=== PATIENT | female | born 1930 | race Hispanic/Latino ===

== ENCOUNTER 2016-09-05 20:00 | Emergency (ER) | payer MEDICARE ==
[2016-09-05 20:40] VITALS: BP 150/79; PULSE 79; RESP 18; TEMP 97.7; O2SAT 99
--- NOTE | 2016-09-05 21:11 | ED PDOC ---
HPI: Head Injury Time Seen by Provider: 09/05/16 21:03 Chief Complaint (Nursing): Eye Problem Chief Complaint (Provider): head injury History Per: Patient History/Exam Limitations: no limitations Additional Complaint(s): 85yo f i ED with extensive cardiac hx and currently on blood thinner sustained facial injury after fall wile walking her dog-injury occurred 4 hrs ago-denies : LOC, headache vision changes numbness/tingling in UE/LE, CO, SOB, change in gait speech or mentation. Pt admit to increasing redness and swelling to left eye-with a "heavy sensation" but no FB sensation photophobia. Past Medical History Reviewed: Historical Data, Nursing Documentation, Vital Signs Vital Signs: Last Vital Signs Temp 97.7 F 09/05/16 20:34 Pulse 79 09/05/16 20:34 Resp 18 09/05/16 20:34 BP 150/79 09/05/16 20:34 Pulse Ox 99 09/05/16 20:34 - Medical History PMH: CAD, HTN, Seizures - Family History Family History: States: Unknown Family Hx - Allergies Allergies/Adverse Reactions: Allergies Allergy/AdvReac Type Severity Reaction Status Date / Time No Known Allergies Allergy Verified 05/02/16 16:53 Review of Systems ROS Statement: Except As Marked, All Systems Reviewed And Found Negative Constitutional: Negative for: Weakness, Malaise Eyes: Positive for: Pain Neurological: Negative for: Headache, Dizziness Physical Exam - Reviewed Nursing Documentation Reviewed: Yes Vital Signs Reviewed: Yes - Physical Exam Appears: Positive for: Non-toxic, No Acute Distress Head Exam: Positive for: ATRAUMATIC, NORMAL INSPECTION, NORMOCEPHALIC Skin: Positive for: Normal Color, Warm, DRY Eye Exam: Positive for: EOMI, PERRL, Other (slera with hemorraghing no hypehma ( -) floursince uptake (-) for consenual photophobia. non tender EOM, fundoscopic exam: no bleeding. ). Negative for: Nystagmus, Periorbital swelling, Periorbital tenderness Neck: Positive for: Normal, Painless ROM Cardiovascular/Chest: Positive for: Regular Rate, Rhythm Respiratory: Positive for: CNT, Normal Breath Sounds Gastrointestinal/Abdominal: Positive for: Normal Exam, Bowel Sounds, Soft. Negative for: Tenderness Neurologic/Psych: Positive for: Alert, machine i engraver II-XII (intact), Oriented, Cerebellar Tests (itnact), Gait (stable ). Negative for: Motor/Sensory Deficits , Facial Droop - ECG O2 Sat by Pulse Oximetry: 99 - Progress ED Course And Treament: pt will get CT of head. Medical Decision Making Medical Decision Making: Ct scan: FINDINGS: Brain: There is moderate prominence of ventricles and sulci, compatible with moderate atrophy. There is moderate diminished density of the white matter bilaterally, consistent with moderate microangiopathy. There is no evidence of intracranial hemorrhage. No evidence of acute territorial infarction. No edema. Ventricles: See above. Bones/joints: Unremarkable. No acute fracture. Soft tissues: Unremarkable. Sinuses: Unremarkable as visualized. No acute sinusitis. Mastoid air cells: Unremarkable as visualized. No mastoid effusion. IMPRESSION: 1. No evidence for acute intracranial abnormality or displaced calvarial fracture. 2. Additional incidental and/or chronic findings as described. Thank you for allowing us to participate in the care of your patient. Dictated and Authenticated by: Antolin Mckay MD 09/05/2016 10:11 PM Eastern Time ([place] & [place]) Pt dx: subcongitval hemorrhage-advised to se cool compress to eye and assured it will dissipate over time. pt advised to f/u with rn forensic. Disposition - Clinical Impression Clinical Impression: Head injury, Subconjunctival hematoma - Patient ED Disposition Is Patient to be Admitted: No Counseled Patient/Family Regarding: Studies Performed, Diagnosis, Need For Followup - Disposition Disposition: Routine/Home Disposition Time: 22:15 Condition: STABLE Instructions: Subconjunctival Hemorrhage (ED)
--- NOTE | 2016-09-05 22:11 | CT ---
EXAM: CT Head Without Intravenous Contrast CLINICAL HISTORY: 85 years old, female; Injury or trauma; Fall; Initial encounter; Concussion / head injury; Injury date: TECHNIQUE: Axial computed tomography images of the head/brain without intravenous contrast. This CT exam was performed using one or more of the following dose reduction techniques: automated exposure control, adjustment of the mA and/or kV according to patient size, and/or use of iterative reconstruction technique. Coronal and sagittal reformatted images were created and reviewed. COMPARISON: CT HEAD OR BRAIN W/O CONT 06/02/2012 5:29:04 PM FINDINGS: Brain: There is moderate prominence of ventricles and sulci, compatible with moderate atrophy. There is moderate diminished density of the white matter bilaterally, consistent with moderate microangiopathy. There is no evidence of intracranial hemorrhage. No evidence of acute territorial infarction. No edema. Ventricles: See above. Bones/joints: Unremarkable. No acute fracture. Soft tissues: Unremarkable. Sinuses: Unremarkable as visualized. No acute sinusitis. Mastoid air cells: Unremarkable as visualized. No mastoid effusion. IMPRESSION: 1. No evidence for acute intracranial abnormality or displaced calvarial fracture. 2. Additional incidental and/or chronic findings as described.
[2016-09-06] MEDS ORDERED: Lidocaine 1% Inj (20ml) ONE (08:58)
[2016-09-06] MEDS ORDERED: Povidone Iodine Topical 10% Sol ONE (09:04)
== END 2016-09-05 22:21 | disposition home or self-care (01) ==
LOC: H.ER 20:00
DX: S09.90XA Unspecified injury of head, initial encounter (principal)

== ENCOUNTER 2016-09-06 07:06 | Inpatient (IN) | payer MEDICARE, OTHER ==
[2016-09-06 07:09] VITALS: BMI 17.9
--- NOTE | 2016-09-06 07:23 | ED PDOC ---
HPI: Trauma/Fall - HPI Time Seen by Provider: 09/06/16 07:07 Chief Complaint (Nursing): Trauma History Per: Patient, Family History/Exam Limitations: no limitations Onset/Duration Of Symptoms: Hrs Associated Symptoms: Dizziness Additional Complaint(s): 85-year-old female, PMHx includes Hypertension, CAD (s/p 17 stents on Aspirin and Plavix), and Hypercholesterolemia, presents to the emergency department accompanied by daughter, with complaints of head injury. Patient states that she woke up and walked to the bathroom this morning, notes she became dizzy and "unsteady on feet" causing her to fall forward, and sustained an injury to her right forehead. Patients daughter notes that she helped patient up and began walking her out of the bathroom, when patient lost her balance again, and sustained a second injury to the forehead, resulting in her being brought to the ED for evaluation. Patient and daughter are unsure of any loss of consciousness. In ER, patient is complaining of left eye pain, mild nausea and pain to the forehead. Denies vomiting, numbness, weakness, back pain, neck pain , or any other associated symptoms. No other complaints at this time. Pt not up to date on Tetanus. Able to move eyes with no issues. PMD Dr Javid Epstein. Past Medical History Reviewed: Historical Data, Nursing Documentation, Vital Signs Vital Signs: Last Vital Signs Temp 97.5 F L 09/06/16 07:09 Pulse 61 09/06/16 07:09 Resp 20 09/06/16 07:09 BP 111/62 09/06/16 07:09 Pulse Ox 100 09/06/16 07:09 - Medical History PMH: CAD, HTN, Seizures - Surgical History Surgical History: Coronary Stent - Family History Family History: States: Unknown Family Hx - Living Arrangements Living Arrangements: With Family - Social History Current smoker - smoking cessation education provided: No Alcohol: None Drugs: Denies - Home Medications Home Medications: Ambulatory Orders Medication Instructions Recorded Alendronate [Fosamax] 70 mg PO QWK 09/06/16 Aspirin [Ecotrin] 81 mg PO DAILY 09/06/16 Atorvastatin [Lipitor] 40 mg PO HS 09/06/16 Divalproex [Depakote ER] 250 mg PO HS 09/06/16 Isosorbide Mononitrate [Imdur] 30 mg PO DAILY 09/06/16 Metoprolol Succinate 25 mg PO DAILY 09/06/16 Prasugrel Hydrochloride [Effient] 5 mg PO DAILY 09/06/16 Ranolazine [Ranexa] 1,000 mg PO DAILY 09/06/16 - Allergies Allergies/Adverse Reactions: Allergies Allergy/AdvReac Type Severity Reaction Status Date / Time No Known Allergies Allergy Verified 05/02/16 16:53 Review of Systems ROS Statement: Except As Marked, All Systems Reviewed And Found Negative Constitutional: Negative for: Weakness Cardiovascular: Negative for: Chest Pain, Palpitations Respiratory: Negative for: Shortness of Breath Gastrointestinal: Positive for: Nausea. Negative for: Vomiting, Hematochezia Musculoskeletal: Negative for: Neck Pain, Arm Pain, Back Pain, Leg Pain, Foot Pain Neurological: Positive for: Headache, Dizziness. Negative for: Weakness, Numbness, Altered Mental Status Physical Exam - Reviewed Nursing Documentation Reviewed: Yes Vital Signs Reviewed: Yes - Physical Exam Appears: Positive for: Non-toxic, No Acute Distress Head Exam: Negative for: ATRAUMATIC (Hematoma to right forehead w/ laceration 0.5cm. Tender, mild.) Skin: Positive for: Warm, Dry. Negative for: Rash Eye Exam: Positive for: EOMI, PERRL, Other (left subconjunctival hemorrhage). Negative for: Periorbital swelling, Periorbital tenderness Neck: Positive for: Supple (in a cervical collar), Trachea Midline Cardiovascular/Chest: Positive for: Regular Rate, Rhythm Respiratory: Positive for: Normal Breath Sounds. Negative for: Accessory Muscle Use Gastrointestinal/Abdominal: Positive for: Soft. Negative for: Tenderness Back: Positive for: Normal Inspection. Negative for: L CVA Tenderness, R CVA Tenderness Extremity: Positive for: Normal ROM, Capillary Refill (<2 seconds). Negative for: Tenderness, Pedal Edema, Calf Tenderness, Deformity, Swelling Neurologic/Psych: Positive for: Alert, playback operator II-XII, Oriented, Other (No focal neurological deficits. ). Negative for: Motor/Sensory Deficits, Aphasia - Laboratory Results Result Diagrams: 09/06/16 08:22 09/06/16 08:22 Interpretation Of Abn Labs: bun 28 - ECG ECG: Positive for: Interpreted By Me, Viewed By Me ECG Rhythm: Positive for: Normal QRS, Normal ST Segment, Sinus Rhythm O2 Sat by Pulse Oximetry: 100 Pulse Ox Interpretation: Normal - Radiology X-Ray: Interpreted by Me, Viewed By Me X-Ray Interpretation: No Acute Disease - CT Scan/US ct Other Rad Studies (CT/US): Read By Radiologist Other Rad Interpretation: no acute - Progress ED Course And Treament: CT HEAD Accession No. : [id number] Patient Name / ID : BRIANA ALFRED / [id number] Exam Date : 09/06/2016 07:43:04 ( Approved ) Study Comment : Sex / Age : F / 85Y Creator : Clemente Crow MD Dictator : Clemente Crow MD Research Specialist : Skidder Operator : Clemente Crow MD Approver2 : Report Date : 09/06/2016 08:33:27 My Comment : * PROCEDURE: CT HEAD WITHOUT CONTRAST. HISTORY: headache COMPARISON: 09/05/2016 TECHNIQUE: Axial computed tomography images were obtained through the head/brain without intravenous contrast. Radiation dose: Total exam DLP = 865.75 mGy-cm. This CT exam was performed using one or more of the following dose reduction techniques: Automated exposure control, adjustment of the mA and/or kV according to patient size, and/or use of iterative reconstruction technique. FINDINGS: HEMORRHAGE: No intracranial hemorrhage. BRAIN: No mass effect or edema. Mild diffuse age-appropriate cerebral atrophy. Moderate periventricular and patchy and confluent areas of deep and subcortical white matter lucency consistent with age related microvascular ischemic change. No evidence of acute infarct. VENTRICLES: Unremarkable. No hydrocephalus. CALVARIUM: No fracture. Right frontal scalp hematoma. This is not evident on prior CT examination of 09/05/2016. PARANASAL SINUSES: Unremarkable as visualized. No significant inflammatory changes. MASTOID AIR CELLS: Unremarkable as visualized. No inflammatory changes. OTHER FINDINGS: None. IMPRESSION: No intracranial hemorrhage. Right frontal scalp hematoma. Age related involutional changes CT Spine Accession No. : [id number] Patient Name / ID : BRIANA ALFRED / [id number] Exam Date : 09/06/2016 07:45:58 ( Approved ) Study Comment : Sex / Age : F / 85Y Creator : Clemente Crow MD Dictator : Clemente Crow MD Research Specialist : Skidder Operator : Clemente Crow MD Approver2 : Report Date : 09/06/2016 08:39:33 My Comment : PROCEDURE: CT Cervical Spine without contrast HISTORY: <neck pain> COMPARISON: None available. TECHNIQUE: Axial computed tomography images were obtained of the cervical spine without the use of intravenous contrast. Coronal and sagittal reformatted images were created and reviewed. Radiation dose: Total exa DLP = mGy-cm. This CT exam was performed using one or more of the following dose reduction techniques: Automated exposure control, adjustment of the mA and/or kV according to patient size, and/or use of iterative reconstruction technique. FINDINGS: VERTEBRAE: No fracture. Normal alignment. No destructive bony lesion. DISCS/SPINAL CANAL/NEURAL FORAMINA: Degenerative disc disease with disc space narrowing at C4-5 and C5-6, associated with Osteophyte formation. remaining disc spaces are maintained in height. PARASPINAL SOFT TISSUES: Heterogeneous thyroid gland. Possible multinodular thyroid. Recommend correlation with thyroid ultrasound examination. OTHER FINDINGS: None. IMPRESSION: No evidence of fracture or dislocation. 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 Possible multinodular thyroid. Correlate with thyroid ultrasound examination. 948: Stable. AAOx3. Pain free. Spoke with Dr. King. Considering plavix use and multiple head injuries in small time frame, will admit obs tele. Dr. King to give further orders when pt. reaches floor. Medical Decision Making Medical Decision Making: Impression Head injury s/p fall. Prior Visits: Notes and records from previous visits were reviewed. Patient was seen in ER on 09/05/16 for a head injury. Patient had a CT head that did not reveal any acute findings. Pt was discharged and referred to Optho for subconjunctival hemorrhage. Plan * Type and Screen * CT C Spine, CT Head * EKG * CMP, Trop I * CBC, PTT, PT * Chest X-Ray * Tetanus Vacc, IVF, Zofran * Reassess and Disposition Scribe Attestation: Documented by Alex Ulloa, acting as a scribe for Kenny Vivas MD Provider Scribe Attestation: All medical record entries made by the Scribe were at my direction and personally dictated by me. I have reviewed the chart and agree that the record accurately reflects my personal performance of the history, physical exam, medical decision making, and the department course for this patient. I have also personally directed, reviewed, and agree with the discharge instructions and disposition. Procedures - Laceration/Wound Repair Right Head Wound Length (cm): 0.5 Wound's Depth, Shape: superficial (R forehead), linear Wound Explored: clean Irrigated w/ Saline (ccs): 100 Betadine Prep?: Yes Wound Repaired With: Skin adhesive Wound Complexity: Simple Sterile Dressing Applied?: Yes Progress: Simple superficial laceration. Skin adhesive used and bleeding stopped; laceration closed. Tolerated well. Disposition - Clinical Impression Clinical Impression: Dehydration, Head injury, Fall, Dizziness - Patient ED Disposition Is Patient to be Admitted: No Counseled Patient/Family Regarding: Studies Performed, Diagnosis - Disposition Disposition Time: 09:50 Condition: FAIR - Pt Status Changed To: Hospital Disposition Of: Observation - POA Present On Arrival: Falls Or Trauma
[2016-09-06] MEDS ORDERED: Sodium Chloride 0.9% 1,000 ML IV STA (07:24)
[2016-09-06] MEDS ORDERED: TDAP Vaccine 0.5 mL Syr IM ONE (07:24)
--- NOTE | 2016-09-06 08:35 | CT ---
PROCEDURE: CT HEAD WITHOUT CONTRAST. HISTORY: headache COMPARISON: 09/05/2016 TECHNIQUE: Axial computed tomography images were obtained through the head/brain without intravenous contrast. Radiation dose: Total exam DLP = 865.75 mGy-cm. This CT exam was performed using one or more of the following dose reduction techniques: Automated exposure control, adjustment of the mA and/or kV according to patient size, and/or use of iterative reconstruction technique. FINDINGS: HEMORRHAGE: No intracranial hemorrhage. BRAIN: No mass effect or edema. Mild diffuse age-appropriate cerebral atrophy. Moderate periventricular and patchy and confluent areas of deep and subcortical white matter lucency consistent with age related microvascular ischemic change. No evidence of acute infarct. VENTRICLES: Unremarkable. No hydrocephalus. CALVARIUM: No fracture. Right frontal scalp hematoma. This is not evident on prior CT examination of 09/05/2016. PARANASAL SINUSES: Unremarkable as visualized. No significant inflammatory changes. MASTOID AIR CELLS: Unremarkable as visualized. No inflammatory changes. OTHER FINDINGS: None. IMPRESSION: No intracranial hemorrhage. Right frontal scalp hematoma. Age related involutional changes.
--- NOTE | 2016-09-06 08:40 | CT ---
PROCEDURE: CT Cervical Spine without contrast HISTORY: <neck pain> COMPARISON: None available. TECHNIQUE: Axial computed tomography images were obtained of the cervical spine without the use of intravenous contrast. Coronal and sagittal reformatted images were created and reviewed. Radiation dose: Total exam DLP = mGy-cm. This CT exam was performed using one or more of the following dose reduction techniques: Automated exposure control, adjustment of the mA and/or kV according to patient size, and/or use of iterative reconstruction technique. FINDINGS: VERTEBRAE: No fracture. Normal alignment. No destructive bony lesion. DISCS/SPINAL CANAL/NEURAL FORAMINA: Degenerative disc disease with disc space narrowing at C4-5 and C5-6, associated with Osteophyte formation. remaining disc spaces are maintained in height. PARASPINAL SOFT TISSUES: Heterogeneous thyroid gland. Possible multinodular thyroid. Recommend correlation with thyroid ultrasound examination. OTHER FINDINGS: None. IMPRESSION: No evidence of fracture or dislocation. Degenerative disc disease C4-5 and C5-6. Possible multinodular thyroid. Correlate with thyroid ultrasound examination.
[2016-09-06 08:45] LABS: BASO % 0.8 % (0.0-2.0); EOS # 0.2 K/uL (0.0-0.7); EOS % 3.7 % (0.0-4.0); HEMATOCRIT 36.1 % (34.0-47.0); LYMPH # 1.7 K/uL (1.0-4.3); LYMPH % 31.7 % (20.0-40.0); MEAN CORPUSCULAR HEMOGLOBIN 28.9 pg (27.0-31.0); MEAN PLATELET VOLUME 8.3 fl (7.2-11.7); MONO # 0.5 K/uL (0.0-0.8); MONO % 9.5 % (0.0-10.0); NEUT # 2.9 K/uL (1.8-7.0); NEUT % 54.3 % (50.0-75.0); NRBC % 0.2 % (0.0-0.0); RED CELL DISTRIBUTION WIDTH 14.5 % (11.5-14.5); WHITE BLOOD COUNT 5.4 K/uL (4.8-10.8)
[2016-09-06 08:55] LABS: ALB/GLOB RATIO 1.1 (1.0-2.1); ALKALINE PHOSPHATASE 61 U/L (38-126); ALT/SGPT 13 U/L (9-52); AST/SGOT 31 U/L (14-36); BILIRUBIN,TOTAL 0.7 mg/dl (0.2-1.3); BLOOD UREA NITROGEN 28 mg/dl (7-17); CALCIUM 8.2 mg/dL (8.4-10.2); CARBON DIOXIDE 27 mmol/L (22-30); CHLORIDE 105 mmol/L (98-107); GFR AFRICAN-AMERICAN > 60; GLUCOSE,RANDOM 92 mg/dL (65-105); POTASSIUM 4.4 MMOL/L (3.6-5.0); SODIUM 144 mmol/l (132-148); TOTAL PROTEIN 6.5 G/DL (6.3-8.2)
--- NOTE | 2016-09-06 10:35 | RAD ---
HISTORY: fall Go fall. COMPARISON: 05/02/2016. FINDINGS: LUNGS: No active pulmonary disease. PLEURA: No significant pleural effusion identified, no pneumothorax apparent. CARDIOVASCULAR: No radiographic findings to suggest acute or significant cardiovascular disease. OSSEOUS STRUCTURES: No significant abnormalities. VISUALIZED UPPER ABDOMEN: Normal. OTHER FINDINGS: None. IMPRESSION: No active disease. No significant interval change compared to the prior examination(s).
--- NOTE | 2016-09-06 12:28 | CON ---
DATE: 09/06/2016 REASON FOR CONSULTATION: Recurrent syncope. HISTORY OF PRESENT ILLNESS: The patient is an 85-year-old female who is a former smoker, quit many y ears ago, has a history of coronary artery disease. According to the daughter, had total of 17 stent s at [facility]. Her nursing project coordinator is Dr. Viveros. The most recent stent was 2-3 years ago. According to the patient's daughter, apparently, the patient was walking her dog in the yard of the apartment building and she tripped and fell by her dog; however, after the daughter stayed with her m om overnight, the daughter heard her mom moaning and found her slumped in the bathroom with her head hitting the bathtub, but there was no bleeding noted at that time. As the daughter assisted her mom to stand up, the daughter slumped from her mom and fell on her face, hitting her head above the right eyebrow and sustaining a left subconjunctival hemorrhage. There was no reported seizure by the daug hter, but the patient almost was unresponsive. According to the daughter, the patient has a history of seizures and was treated with different medications, initially with Dilantin and then was placed o n Lamictal. That was discontinued because the patient lost tremendous weight on Lamictal and was fin ally put on Depakote. SOCIAL HISTORY: The patient is a former smoker. HOME MEDICATIONS: Include Ranexa, Effient, metoprolol, Imdur, Depakote, Lipitor, aspirin, and Fosama x. REVIEW OF SYSTEMS: No tongue biting or urinary incontinence. PHYSICAL EXAMINATION: GENERAL: The patient is an elderly female who does not appear to be in any acute distress. VITAL SIGNS: Blood pressure 112/65, heart rate 71, temperature 97.5, respirations 19. HEENT: Dressing is applied to the right frontal wound. Left eye subconjunctival hemorrhage. NECK: No JVD. CHEST: Clear. HEART: S1, S2 regular. EXTREMITIES: Significant muscle wasting. No edema. LABORATORY DATA: CBC is entirely within normal limits. INR is 1.24. PTT 25. SMA-7 is within byron l limits except for BUN of 28. One set of troponin is negative. Valproic acid is 57.6. EKG reveale d sinus rhythm, minimal voltage criteria for LVH, heart rate 65. Head CT scan without contrast: No intracranial hemorrhage, right frontal scalp hematoma. Cervical spine x-ray: No evidence of fractur e or dislocation, degenerative disk disease at C4-5 and C5-6, possible multinodular goiter. ASSESSMENT: 1. Coronary artery disease with history of 17 coronary stents in the past. The patient is currently chest pain free and no ischemic EKG changes. 2. Recurrent falls versus recurrent seizure activities. 3. Hypertension. RECOMMENDATIONS: If the patient is cleared by neurologist, Effient and aspirin should be resumed as well as Lipitor. Continue telemetry monitoring. Obtain an echocardiogram. Francisco Estrella MD cc: [id number] TT: 09/06/2016 12:28:22 Confirmation # [id number] Dictation # [id number]
--- NOTE | 2016-09-06 15:25 | CP.PCM.CON ---
History of Present Illness - History of Present Illness History of Present Illness: Mrs. Bell is an 85-year-old woman with a past medical history significant for long standing seizure disorder (was on dilantin for many years, but was switched to lamictal, had side-effects of weight loss and hallucinations, and was placed on depakote), hypertension, CAD (17 stents over the years and is on aspirin and Effient), and hypercholesterolemia, who presented after two episodes of falls, losing tone in her body without losing consciousness or having any urinary/bowel incontinence or tongue biting. The patient's daughter helps with the history and states that she heard a moan and a subsequent loud fall. When she went to investigate, she found her mother laying in the tub. She tried to help her up, but she immediately became limp and "huang in the face ". She did not lose consciousness, but she fell from her daughters arms and hit her head. The patient was complaining of left eye pain, mild nausea and pain to the forehead. Denies vomiting, numbness, weakness, back pain, neck pain , visual changes, shortness of breath or chest pain. Review of Systems - Review of Systems All systems: reviewed and no additional remarkable complaints except - Constitutional Constitutional: absent: As Per HPI, Anorexia, Chills, Daytime Sleepiness, Excessive Sweating, Fatigue, Fever, Frequent Falls, Headache, Increased Appetite , Lethargy, Malaise, Night Sweats, Snoring, Sleep Apnea, Weight Gain, Weight Loss, Weakness, Other - EENT Eyes: absent: As Per HPI, Blind Spots, Blurred Vision, Change in Vision, Decreased Night Vision, Diplopia, Discharge, Dry Eye, Exophthalmos, Floaters, Irritation, Itchy Eyes, Loss of Peripheral Vision, Pain, Photophobia, Requires Corrective Lenses, Sees Flashes, Spots in Vision, Tunnel Vision, Other Visual Disturbances, Loss of Vision, Other Ears: absent: As Per HPI, Decreased Hearing, Ear Discharge, Ear Pain, Tinnitus, Abnormal Hearing, Disequilibrium, Dizziness, Other Nose/Mouth/Throat: As Per HPI - Cardiovascular Cardiovascular: As Per HPI - Respiratory Respiratory: absent: As Per HPI, Cough, Dyspnea, Hemoptysis, Dyspnea on Exertion , Wheezing, Snoring, Stridor, Pain on Inspiration, Chest Congestion, Excessive Mucous Production, Change in Mucous Color, Pain with Coughing, Other - Gastrointestinal Gastrointestinal: absent: As Per HPI, Abdominal Pain, Belching, Bloating, Change in Bowel Habits, Change in Stool Character, Coffee Ground Emesis, Constipation, Cramping, Diarrhea, Dyspepsia, Dysphagia, Early Satiety, Excessive Flatus, Fecal Incontinence, Heartburn, Hematemesis, Hematochezia, Loose Stools, Melena, Nausea, Odynophagia, Temesmus, Vomiting, Other - Musculoskeletal Musculoskeletal: As Per HPI - Neurological Neurological: As Per HPI - Psychiatric Psychiatric: As Per HPI Past Patient History - Past Social History Alcohol: None Drugs: Denies - CARDIAC Hx Cardiac Disorders: Yes - NEUROLOGICAL Hx Seizures: Yes - PSYCHIATRIC Hx Substance Use: No - SURGICAL HISTORY Hx Coronary Stent: Yes - ANESTHESIA Hx Anesthesia: Yes Hx Anesthesia Reactions: No Meds Allergies/Adverse Reactions: Allergies Allergy/AdvReac Type Severity Reaction Status Date / Time No Known Allergies Allergy Verified 05/02/16 16:53 - Medications Medications: Current Medications Atorvastatin Calcium (Lipitor) 40 mg PO DAILY [facility] Divalproex Sodium (Depakote Er(Once Daily)) 750 mg PO DAILY [facility] Physical Exam - Constitutional Appears: Well, No Acute Distress - Head Exam Additional comments: scalp hematoma to the right frontal region is noted. eye injection in the left scleral region. - Eye Exam Eye Exam: Conjunctival injection, Periorbital swelling, Periorbital tenderness, PERRL - Neck Exam Neck exam: Positive for: Full Rom - Respiratory Exam Respiratory Exam: Clear to Auscultation Bilateral, NORMAL BREATHING PATTERN - Cardiovascular Exam Cardiovascular Exam: REGULAR RHYTHM - Neurological Exam Neurological exam: Alert, CN II-XII Intact, Normal Gait, Oriented x3, Reflexes Normal - Expanded Neurological Exam Expanded Patient oriented to: person, place, time Cranial nerves: EOM's Intact: Normal, Facial Palsey w/Forehead Movement: Normal , Facial Sensation: Normal, Gag Reflex: Normal, Nystagmus: Normal Ataxia: No Cerebellar Function: Finger to Nose: Normal, Heel to Greenberg: Normal, Romberg: Normal Upper motor neuron: Babinski Sign: Normal Sensory exam: Lower Extremity 2 Point Discrimination: Normal, Lower Extremity Light Touch: Normal, Lower Extremity Pin Prick: Normal, Lower Extremity Temperature: Normal, Upper Extremity 2 Point Discrimination: Normal, Upper Extremity Light Touch: Normal, Upper Extremity Pin Prick: Normal, Upper Extremity Temperature: Normal Neuro motor strength exam: Left Upper Extremity: 5, Right Upper Extremity: 5, Left Lower Extremity: 5, Right Lower Extremity: 5 DTR: Achilles Tendon Left: 2+, Achilles Tendon Right: 2+, Bicep Left: 2+, Bicep Right: 2+, Patellar Left: 2+, Patellar Right: 2+ Results - Vital Signs Recent Vital Signs: Last Vital Signs Temp 97.4 F L 09/06/16 12:29 Pulse 67 09/06/16 12:29 Resp 18 09/06/16 12:29 BP 147/69 09/06/16 12:29 Pulse Ox 100 09/06/16 12:29 - Labs Result Diagrams: 09/06/16 08:22 09/06/16 08:22 - Imaging and Cardiology CT scan - head Status: Image reviewed by me, Report reviewed by me (Scalp hematoma noted, no other intracranial findings. ) Assessment & Plan (1) Dizziness Assessment and Plan: The dizziness could be a result of dehydration or a side effect of her anti- hypertensive or anti-anginal medications (ranolazine, nitrates, metoprolol). Adequate hydration and permissive hypertension (hold BP meds for pressures less than 180/110 mm Hg) are recommended until MRI/MRA of the brain are done to rule out an ischemic event. Status: Acute (2) Fall Assessment and Plan: Likely due to hypoperfusion or could be loss of tone during an epileptic spell ( less likely since there was no loss of consciousness and depakote level is therapeutic). NS is recommended at 100 mL/hr, PT/OT and continue anti-platelet agents. Cardiology consult is recommended to evaluate for arrhythmias. Continue telemetry and obtain an echocardiogram. Status: Acute
--- NOTE | 2016-09-06 16:04 | CP.PCM.HP ---
History of Present Illness - History of Present Illness History of Present Illness: 85 yo with hx CAD HTN Hypercholest Seizure disorder admitted for syncopal episode x 2 with head trauma Present on Admission - Present on Admission Any Indicators Present on Admission: No Past Patient History - Past Social History Alcohol: None Drugs: Denies - CARDIAC Hx Cardiac Disorders: Yes - NEUROLOGICAL Hx Seizures: Yes - PSYCHIATRIC Hx Substance Use: No - SURGICAL HISTORY Hx Coronary Stent: Yes - ANESTHESIA Hx Anesthesia: Yes Hx Anesthesia Reactions: No Meds Allergies/Adverse Reactions: Allergies Allergy/AdvReac Type Severity Reaction Status Date / Time No Known Allergies Allergy Verified 05/02/16 16:53 Physical Exam - Respiratory Exam Respiratory Exam: NORMAL BREATHING PATTERN - Cardiovascular Exam Cardiovascular Exam: REGULAR RHYTHM - GI/Abdominal Exam GI & Abdominal Exam: Normal Bowel Sounds Results - Vital Signs Recent Vital Signs: Last Vital Signs Temp 97.4 F L 09/06/16 12:29 Pulse 67 09/06/16 12:29 Resp 18 09/06/16 12:29 BP 147/69 09/06/16 12:29 Pulse Ox 100 09/06/16 12:29 - Labs Result Diagrams: 09/06/16 08:22 09/06/16 08:22 Labs: Laboratory Results - last 24 hr 09/06/16 15:00 Blood Type Confirm O POSITIVE Assessment & Plan - Assessment and Plan (Free Text) Assessment: Syncopal episode etiol? Hx CAD HTN Hypercholest Hx Seizure disorder Admit telemetry w/u in process Cardiology Neurology
[2016-09-06] MEDS: Sodium Chloride 0.9% 1,000 ML IV SCH (16:56)
--- NOTE | 2016-09-06 19:20 | CARD ---
APPROVED REPORT EXAM: Two-dimensional and M-mode echocardiogram with Doppler and color Doppler. Other Information Quality : GoodRhythm : NSR INDICATION Dizziness and Vertigo 2D DIMENSIONS IVSd1.00 (0.7-1.1cm)LVDd3.80 (3.9-5.9cm) LVOT Diameter1.94 (1.8-2.4cm)PWd0.88 (0.7-1.1cm) IVSs1.06 (0.8-1.2cm)LVDs2.87 (2.5-4.0cm) FS (%) 24.5 %PWs1.11 (0.8-1.2cm) LVEF (%)50.0 (>50%) M-Mode DIMENSIONS Left Atrium (MM)3.89 (2.5-4.0cm)IVSd0.58 (0.7-1.1cm) Aortic Root2.87 (2.2-3.7cm)LVDd5.05 (4.0-5.6cm) Aortic Cusp Exc.1.82 (1.5-2.0cm)PWd0.63 (0.7-1.1cm) IVSs0.94 cmFS (%) 34 % LVDs3.31 (2.0-3.8cm)PWs1.38 cm Mitral Valve MV E Izuvumta46.2cm/sMV DECEL [id number] A Pqjzmcro34.0cm/s MV RSX77pbA/A ratio0.9MVA (PHT)3.52cm2 TDI Lateral E' Peak V7.41cm/sMedial E' Peak V6.27cm/sE/Lateral E'10.8 E/Medial E'12.8 LEFT VENTRICLE The left ventricle is normal size. There is normal left ventricular wall thickness. Left ventricle ejection fraction is borderline. There is a flattened septum Transmitral Doppler flow pattern is Grade I-abnormal relaxation pattern. RIGHT VENTRICLE The right ventricle is normal size. There is normal right ventricular wall thickness. The right ventricular systolic function is normal. ATRIA The left atrium size is normal. The right atrium size is normal. AORTIC VALVE The aortic valve is mildly thickened. No aortic regurgitation is present. There is no aortic valvular stenosis. MITRAL VALVE The mitral valve is moderately thickened. There is no mitral valve stenosis. Mitral regurgitation is trace. TRICUSPID VALVE The tricuspid valve is normal in structure and function. There is no tricuspid valve regurgitation noted. PULMONIC VALVE The pulmonary valve is normal in structure and function. There is no pulmonic valvular regurgitation. GREAT VESSELS The aortic root is normal in size. The IVC is normal in size and collapses >50% with inspiration. PERICARDIAL EFFUSION The pericardium appears normal. <Conclusion> The left ventricle is normal size. There is normal left ventricular wall thickness. Left ventricle ejection fraction is borderline. There is a flattened septum Transmitral Doppler flow pattern is Grade I-abnormal relaxation pattern.
--- NOTE | 2016-09-06 20:16 | CARD ---
APPROVED REPORT EKG Measurement Heart [id number] CT 180P58 [id number] <Conclusion> Normal sinus rhythm Minimal voltage criteria for LVH, may be normal variant Borderline ECG
[2016-09-06] MEDS ORDERED: Divalproex 500 mg ER (ONCE DAILY formulation) PO SCH (22:00)
[2016-09-06] MEDS: Divalproex 500 mg ER (ONCE DAILY formulation) PO SCH (22:27)
[2016-09-06] MEDS: Divalproex 250 mg ER (ONCE DAILY formulation) PO SCH (22:27)
[2016-09-07] MEDS: Sodium Chloride 0.9% 1,000 ML IV SCH ×2 (02:01→18:48)
[2016-09-07] MEDS: Metoprolol Succinate 25 mg XL Tab PO SCH (11:16)
--- NOTE | 2016-09-07 12:17 | PN ---
DATE: 09/07/2016 The patient is currently walking briskly with her physical therapist. She denies any dizziness. No reported have falls. No reported ventricular arrhythmia on the monitor. PHYSICAL EXAMINATION: VITAL SIGNS: Blood pressure 130/68, heart rate 61, temperature 97.5, respirations 18. HEENT: Dressings applied to the right frontal laceration, left subconjunctival hemorrhage. CHEST: Right bibasilar dry crackles. HEART: S1, S2 regular. EXTREMITIES: Significant muscle wasting. No edema. ASSESSMENT: 1. Coronary artery disease with history of 17 coronary stents in the past. 2. Recurrent falls, rule out seizure activity. The patient has history of seizure disorder. 3. Pulmonary fibrosis. 4. Hypertension. RECOMMENDATIONS: Continue current Depakote, aspirin, Imdur, Lipitor and Toprol-XL. Continue IV hydr ation 0.9 at 100 mL an hour. I did review the echocardiograph study done yesterday which revealed no rmal ventricular size, wall thickness, ejection fraction. There was flattening of the septum and gra de I abnormal relaxation pattern. The patient can undergo the MRI from the cardiac point of view. I will follow with thyroid ultrasound scan. Consider carotid Doppler which I will order. Francisco Estrella MD cc: [id number] TT: 09/07/2016 12:16:34 Confirmation # [id number] Dictation # [id number]
--- NOTE | 2016-09-07 12:21 | US ---
HISTORY: Multinodular thyroid TECHNIQUE: Sonographic evaluation of the thyroid gland. COMPARISON: None. FINDINGS: RIGHT LOBE: Measures 4.3 x 1.5 x 1.7 cm. Heterogenous echotexture, normal vascularity Nodules: Upper pole nodule cystic 3 x 2 mm. Midpole nodule solid 2 x 4 mm, well-circumscribed. Solid well-circumscribed isoechoic nodule 10 mm. LEFT LOBE: Measures 1.3 x 1.1 x 3.4 cm. Heterogenous echotexture, normal vascularity Nodules: Upper pole nodule well-circumscribed cystic 1 x 2 mm. Midpole posterior nodule solid 4 x 6 mm. ISTHMUS: Measures 0.24 cm. Nodules: None OTHER FINDINGS: None . IMPRESSION: Findings consistent with multinodular goiter. No suspicious nodules or other findings requiring further evaluation.
--- NOTE | 2016-09-07 13:35 | US ---
PROCEDURE: Carotid vertebral duplex HISTORY: falls COMPARISON: None TECHNIQUE: Grayscale, color Doppler and spectral Doppler assessment of the carotid system bilaterally. This includes common carotid, internal carotid arteries Vertebral artery assessment with respect to direction of flow (antegrade or retrograde) FINDINGS: RIGHT carotid system: Assessment of plaque: Heterogeneous partially calcified plaque in the bulb extending into the right ICA. Peak systolic ICA velocity: 62.9 cm/sec End-diastolic velocity: 14.5 cm/sec ICA/CCA ratio: 1.1 Vertebral artery flow: Antegrade LEFT carotid system: Assessment of plaque: Heterogeneous plaque formation more prominent compared to the contralateral, right side primarily in the bulb and extending into the proximal ICA. Tortuous distal left ICA Peak systolic ICA velocity: 53.7 cm/sec End-diastolic velocity: 10.9 cm/sec ICA/CCA ratio: 0.80 Vertebral artery flow: Antegrade IMPRESSION: Right ICA degree of stenosis: Less than 50% Left ICA degree of stenosis: Less than 50% Reference Internal Carotid Artery (ICA) Peak Systolic Velocity (PSV) for above: 1. Less than 50% stenosis less than 125 cm/s peak systolic velocity 2. 50-69% stenosis 125-230cm/s peak systolic velocity 3. Greater than 70% but less than near occlusion greater than 230 cm/s peak systolic velocity
--- NOTE | 2016-09-07 16:02 | CP.PCM.PN ---
Subjective - Date & Time of Evaluation Date of Evaluation: 09/07/16 Time of Evaluation: 13:00 - Subjective Subjective: Mrs. Bell was seen and examined today at bedside with her daughter present. She continued to complain of gait instability and balance problems. MRI of the brain could not be done due to lack of information about her many coronary stents. However, I reviewed the carotid Doppler and noted the stenotic changes. These were discussed with the patient and we talked about further diagnostic testing with a CTA of the head and neck for evaluation. She denied any headache, visual changes, nausea, shortness of breath, weakness, sensory changes or chest pain. Objective - Vital Signs/Intake and Output Vital Signs (last 24 hours): Temp Pulse Resp BP Pulse Ox 98.2 F 64 18 110/57 L 96 09/07/16 15:43 09/07/16 15:43 09/07/16 15:43 09/07/16 15:43 09/07/16 15:43 - Medications Medications: Current Medications Aspirin (Ecotrin) 81 mg PO DAILY [facility] Atorvastatin Calcium (Lipitor) 40 mg PO DAILY [facility] Last Admin: 09/07/16 11:16 Dose: 40 mg Divalproex Sodium (Depakote Er(Once Daily)) 500 mg PO HS [facility] Last Admin: 09/06/16 22:27 Dose: 500 mg Divalproex Sodium (Depakote Er(Once Daily)) 250 mg PO HS [facility] Last Admin: 09/06/16 22:27 Dose: 250 mg Isosorbide Mononitrate (Imdur) 30 mg PO DAILY [facility] Last Admin: 09/07/16 11:15 Dose: 30 mg Metoprolol Succinate (Toprol Xl) 25 mg PO DAILY [facility] Last Admin: 09/07/16 11:16 Dose: 25 mg - Labs Labs: PT 12.9 SECONDS (9.6-11.2) H 09/06/16 08:22 INR 1.24 (0.92-1.08) H 09/06/16 08:22 APTT 25.0 SECONDS (23.3-32.5) 09/06/16 08:22 - Constitutional Appears: Well - Head Exam Head Exam: ATRAUMATIC, NORMAL INSPECTION, NORMOCEPHALIC - Eye Exam Eye Exam: Conjunctival injection, EOMI, Periorbital swelling, Periorbital tenderness, PERRL Pupil Exam: NORMAL ACCOMODATION, PERRL - Neck Exam Neck Exam: Full ROM, Normal Inspection. absent: Lymphadenopathy - Respiratory Exam Respiratory Exam: Clear to Ausculation Bilateral, NORMAL BREATHING PATTERN - Cardiovascular Exam Cardiovascular Exam: REGULAR RHYTHM, +S1, +S2. absent: Murmur - GI/Abdominal Exam GI & Abdominal Exam: Soft, Normal Bowel Sounds. absent: Tenderness - Neurological Exam Neurological Exam: Alert, Awake, CN II-XII Intact, Normal Gait, Oriented x3 Neuro motor strength exam: Left Upper Extremity: 5, Right Upper Extremity: 5, Left Lower Extremity: 5, Right Lower Extremity: 5 - Psychiatric Exam Psychiatric exam: Normal Affect, Normal Mood - Skin Skin Exam: Abrasion, Petechiae Assessment and Plan (1) Dizziness Assessment & Plan: Will evaluate for posterior circulation compromise with a CTA of the head and neck. This will also help to confirm the degree of carotid stenosis. Will continue current medications for secondary stroke prevention. Status: Acute (2) Fall Assessment & Plan: Continue telemetry and follow up with cardiology for possible neurocardiogenic causes. EEG can be obtained for further evaluation of epilepsy as an outpatient and reviewed by her neurologist. Currently, she is stable with regard to her history of epilepsy and her depakote levels are therapeutic. Status: Acute
--- NOTE | 2016-09-07 17:38 | CON ---
DATE: 09/07/2016 ENDOCRINOLOGY CONSULTATION ROOM: 403. HISTORY OF PRESENT ILLNESS: This is an 85-year-old female with known history of hypertension and cor onary artery disease who was admitted here with a syncopal episode and bifrontal headaches with conco mitant head trauma, and is being referred now for endocrine evaluation of a multinodular goiter seen by thyroid ultrasound, as noted. PAST MEDICAL HISTORY: History of coronary artery disease with previous coronary stent placements, hi story of hypertensive cardiovascular disease and dyslipidemia, history of a previous seizure disorder , and currently on medications, as noted. FAMILY HISTORY: Positive for hypertension and heart disease. SOCIAL HISTORY: The patient has supportive family. No known substance use. REVIEW OF SYSTEMS: As mentioned above, admits to generalized body weakness with easy fatigability an d tiredness and suboptimal energy level. Also admits to episodic bouts of dizziness and lightheadedn ess with frequent near syncopal and syncopal episodes, as mentioned. Also admits to bifrontal headac hes, but recent visual changes or impairments. No recent chest pains or palpitations, but admits to progressive shortness of breath, especially on exertion. Her oral intake is variable and suboptimal with occasional dyspepsia and habitual constipation. PHYSICAL EXAMINATION: GENERAL: This is an average-built female in no apparent distress. VITAL SIGNS: Blood pressure of 140/80, pulse of 70 beats per minute, regular, temperature 98, respir ations 20. Height is 5 feet, weight is 92 pounds. HEENT: Head normocephalic. Eyes anicteric with pink conjunctivae. Fundoscopy not possible at this time. Ears, nose, and throat otherwise normal. NECK: Supple. Thyroid gland shows nodular thyromegaly, which is firm and nontender, with no overt d ominant nodules palpable at this time. No cervical adenopathy or thyroid bruits noted. HEART: Adynamic precordium. S1, S2 are rapid and regular. LUNGS: Clear to auscultation. ABDOMEN: Flat, soft, with positive bowel sounds. EXTREMITIES: No peripheral edema. Pulses are +2 bilaterally. LABORATORY DATA: Her chemistries showed a BUN of 28, sodium 144, potassium 4.4, chloride 105, CO2 27 , glucose 92, and creatinine 0.7. ASSESSMENT: This is an 85-year-old female with a syncopal episode on the background of significant c ardiac vasculopathy and is now being referred for endocrine evaluation because of an incidental find ing of a multinodular goiter by thyroid ultrasound, as noted. She is clinically euthyroid at this ti me and has no overt neck compressive symptoms, as noted. The multinodular goiter seen by ultrasound has very small minute nodules which do not require any kind of surgical intervention nor needle aspir ation biopsies. PLAN OF MANAGEMENT: We will obtain a comprehensive thyroid hormonal profile with total and free T4 a nd TSH, and we will also do the thyroid peroxidase antibody, which will confirm and/or negate the pre sence of underlying thyroid autoimmunity. No indication at this time for any kind of thyroid pharmac otherapy pending the availability of the thyroid function studies. There is also no indication for a ny fine needle aspiration biopsies of the nodules which are very minute and small at this time. If w e are dealing with abdominal solid nodule, then that would be an indication for a needle aspiration b iopsy which is not present with the patient at this time. We will follow and advise accordingly. Brigette Romeo MD cc: [id number] TT: 09/07/2016 17:37:21 Confirmation # [id number] Dictation # [id number]
[2016-09-07] MEDS ORDERED: Iodixanol 320 MG/ML 100 ML BOTTLE IV ONE (21:06)
[2016-09-07] MEDS ORDERED: Sodium Chloride 0.9% 50 ML IV ONE (21:07)
[2016-09-07] MEDS: Divalproex 500 mg ER (ONCE DAILY formulation) PO SCH (21:51)
[2016-09-07] MEDS: Divalproex 250 mg ER (ONCE DAILY formulation) PO SCH (21:51)
--- NOTE | 2016-09-07 21:51 | CP.PCM.PN ---
Subjective - Date & Time of Evaluation Date of Evaluation: 09/07/16 Time of Evaluation: 22:22 - Subjective Subjective: Above noted Objective - Vital Signs/Intake and Output Vital Signs (last 24 hours): Temp Pulse Resp BP Pulse Ox 98.5 F 68 20 124/68 97 09/07/16 19:31 09/07/16 19:31 09/07/16 19:31 09/07/16 19:31 09/07/16 19:31 - Medications Medications: Current Medications Aspirin (Ecotrin) 81 mg PO DAILY [facility] Atorvastatin Calcium (Lipitor) 40 mg PO DAILY [facility] Last Admin: 09/07/16 11:16 Dose: 40 mg Divalproex Sodium (Depakote Er(Once Daily)) 500 mg PO HS [facility] Last Admin: 09/06/16 22:27 Dose: 500 mg Divalproex Sodium (Depakote Er(Once Daily)) 250 mg PO HS [facility] Last Admin: 09/06/16 22:27 Dose: 250 mg Isosorbide Mononitrate (Imdur) 30 mg PO DAILY [facility] Last Admin: 09/07/16 11:15 Dose: 30 mg Metoprolol Succinate (Toprol Xl) 25 mg PO DAILY [facility] Last Admin: 09/07/16 11:16 Dose: 25 mg - Labs Labs: PT 12.9 SECONDS (9.6-11.2) H 09/06/16 08:22 INR 1.24 (0.92-1.08) H 09/06/16 08:22 APTT 25.0 SECONDS (23.3-32.5) 09/06/16 08:22 - Respiratory Exam Respiratory Exam: NORMAL BREATHING PATTERN - Cardiovascular Exam Cardiovascular Exam: REGULAR RHYTHM - GI/Abdominal Exam GI & Abdominal Exam: Normal Bowel Sounds Assessment and Plan - Assessment and Plan (Free Text) Assessment: Syncopal episode etiol? Hx CAD HTN Hypercholest Hx Seizure disorder Admit telemetry w/u in process Cardiology Neurology Multinodular thyroid dx Endo
--- NOTE | 2016-09-07 23:01 | CT ---
EXAM: CT Angiography Head With Intravenous Contrast CT Angiography Neck With Intravenous Contrast CLINICAL HISTORY: 85 years old, female; Signs and symptoms; Syncope and collapse and weakness; Additional info: Syncope. Sent physician doc. With request TECHNIQUE: Axial computed tomographic angiography images of the head and neck with intravenous contrast using CT angiography protocol. This CT exam was performed using one or more of the following dose reduction techniques: automated exposure control, adjustment of the mA and/or kV according to patient size, and/or use of iterative reconstruction technique. MIP reconstructed images were created and reviewed. Coronal and sagittal reformatted images were created and reviewed. CONTRAST: 70 mL of [id number] administered intravenously. COMPARISON: CT - HEAD W/O CONTRAST 09/06/2016 7:43:04 AM FINDINGS: HEAD: Right anterior cerebral artery: Unremarkable. No occlusion or significant stenosis. No aneurysm. Right middle cerebral artery: Unremarkable. No occlusion or significant stenosis. No aneurysm. Right posterior cerebral artery: Unremarkable. No occlusion or significant stenosis. No aneurysm. Left anterior cerebral artery: Unremarkable. No occlusion or significant stenosis. No aneurysm. Left middle cerebral artery: Unremarkable. No occlusion or significant stenosis. No aneurysm. Left posterior cerebral artery: Unremarkable. No occlusion or significant stenosis. No aneurysm. Basilar artery: Unremarkable. No occlusion or significant stenosis. No aneurysm. Brain: There is mild prominence of ventricles and sulci, compatible with mild atrophy. There is mild diminished density of the white matter bilaterally, consistent with mild microangiopathy. There is no evidence of intracranial hemorrhage. No evidence of acute territorial infarction. No edema. NECK: Right common carotid artery: There is a right retropharyngeal common carotid artery. No significant stenosis. No dissection or occlusion. Right internal carotid artery: Unremarkable. No significant stenosis. No dissection or occlusion. Right external carotid artery: Unremarkable. No occlusion. Right vertebral artery: Unremarkable. No significant stenosis. No dissection or occlusion. Left common carotid artery: Unremarkable. No significant stenosis. No dissection or occlusion. Left internal carotid artery: Unremarkable. No significant stenosis. No dissection or occlusion. Left external carotid artery: Unremarkable. No occlusion. Left vertebral artery: Unremarkable. No significant stenosis. No dissection or occlusion. Other vasculature: The vasculature demonstrates diffuse mild atherosclerotic calcification. HEAD and NECK: Bones/joints: No acute fracture. No dislocation. Soft tissues: Unremarkable as visualized. No mass. CAROTID STENOSIS REFERENCE USING NASCET CRITERIA: % ICA stenosis = (1 - narrowest ICA diameter/diameter of distal cervical ICA) x 100. Mild - <50% stenosis. Moderate - 50-69% stenosis. Severe - 70-94% stenosis. Near occlusion - 95-99% stenosis. Occluded - 100% stenosis. IMPRESSION: No acute findings.
[2016-09-08 05:52] LABS: ALKALINE PHOSPHATASE 62 U/L (38-126); ALT/SGPT 11 U/L (9-52); AST/SGOT 23 U/L (14-36); BILIRUBIN,TOTAL 0.6 mg/dl (0.2-1.3); BLOOD UREA NITROGEN 17 mg/dl (7-17); CALCIUM 8.4 mg/dL (8.4-10.2); CARBON DIOXIDE 25 mmol/L (22-30); CHLORIDE 109 mmol/L (98-107); GFR AFRICAN-AMERICAN > 60; GLUCOSE,RANDOM 94 mg/dL (65-105); SODIUM 144 mmol/l (132-148); TOTAL PROTEIN 6.7 G/DL (6.3-8.2)
[2016-09-08 06:07] LABS: T4 6.88 ug/dl (5.5-11.0)
[2016-09-08 06:20] LABS: THYROID STIMULATING HORMONE 2.77 mIU/ML (0.46-4.68)
[2016-09-08 08:49] VITALS: RESP 20
[2016-09-08] MEDS: Metoprolol Succinate 25 mg XL Tab PO SCH (09:30)
--- NOTE | 2016-09-08 14:05 | PN ---
DATE: 09/08/2016 The patient denies any dizziness. She is ambulating. She is sitting, playing cards with her gisel elliott. The only complaint that the daughter gave was that the patient has very poor appetite. PHYSICAL EXAMINATION: VITAL SIGNS: Blood pressure 175/76, heart rate 64, temperature 97.9, respiration 20. HEENT: Dressing is applied to the right frontal bruising. Left eye subconjunctival hemorrhage. NECK: No JVD. EXTREMITIES: No edema. LABORATORIES: Today's SMA-7 is within normal limits except for chloride of 109 and creatinine 0.5. Head and neck CT angio revealed the impression of no acute findings. Carotid ultrasound revealed les s than 50% stenosis. Thyroid ultrasound was consistent with multinodular goiter. ASSESSMENT: 1. Coronary artery disease status post multiple stenting in the past. 2. Recurrent falls per the seizure disorder. 3. Multinodular goiter. RECOMMENDATIONS: Continue current aspirin 81 mg once a day, Imdur 30 mg once a day, Lipitor 40 mg on ce a day, Toprol-XL 25 mg once a day. No further cardiac workup. Nutrition supplement was discussed with the patient's daughter. Francisco Estrella MD cc: [id number] TT: 09/08/2016 14:04:29 Confirmation # [id number] Dictation # [id number] la
--- NOTE | 2016-09-08 15:17 | PQF GENQUE ---
Dr. Rhodes, Etiology of Syncope if known after work up completed? OR:Unable to determine OR:Other explanation of clinical findings H and P: Ass: admitted for syncopal episode x 2 with head trauma Impression: Syncopal episode etiol? Hx CAD HTN Hypercholest Hx Seizure disorder Cardiology Consult ; Coronary artery disease with history of 17 coronary stents in the past. The patient is currently chest pain free and no ischemic EKG changes. 2. Recurrent falls versus recurrent seizure activities. 3. Hypertension. Neurology Consult: Impression:Dizziness could be a result of dehydration or a side effect of her anti-hypertensive or anti- anginal medications (ranolazine, nitrates, metoprolol). Adequate hydration and permissive hypertension (hold BP meds for pressures less than 180/110 mm Hg) are recommended until MRI/MRA of the brain are done to rule out an ischemic event. (2) Fall:Likely due to hypoperfusion or could be loss of tone during an epileptic spell (less likely since there was no loss of consciousness and depakote level is therapeutic). NS is recommended at 100 mL/ hr, PT/OT and continue anti-platelet agents. Cardiology consult is recommended to evaluate for arrhythmias. Continue telemetry and obtain an echocardiogram. 09/07: Neurology progress note : Dizziness:Will evaluate for posterior circulation compromise with a CTA of the head and neck. This will also help to confirm the degree of carotid stenosis. Will continue current medications for secondary stroke prevention. (2) Fall ;Ass:Continue telemetry and follow up with cardiology for possible neurocardiogenic causes. EEG can be obtained for further evaluation of epilepsy as an outpatient and reviewed by her neurologist. Currently, she is stable with regard to her history of epilepsy and her depakote levels are therapeutic. 09/07 Attending progress note:Assessment: Syncopal episode etiol? This form is a permanent part of the medical record Clarification of your documentation is requested to better reflect the severity of illness and intensity of treatment of your patient. Indicators present [] Specify: [] [] Specify: [] [] Specify: [] [] Specify: [] Location in the medical record that reflects the above clinical findings: [] Treatment Provided: [] PHYSICIAN'S RESPONSE Based on your medical judgment of the clinical indicators outlined above please clarify the following: [] Practitioner response [] If unable to determine, please check the box, sign and date. Present On Admission (POA) Indicator: [] Present at the time of admission [] Not present at the time of admission [] Clinically Undetermined In responding to this query, please exercise your independent professional judgment. The fact that a question is asked does not imply that any particular answer is desired or expected. Thank you for your clarification on this documentation. If you have any questions please call. * Thank you, Myah Palma RN BSN ext. #[phone] MTDD
[2016-09-08 16:04] VITALS: BP 134/77; PULSE 65; TEMP 97.7; O2SAT 99
--- NOTE | 2016-09-08 19:07 | PN ---
DATE: 09/08/2016 ROOM: 403 SUBJECTIVE: This is an 85-year-old female with recent admission for neurological evaluation of frequ ent syncopal episodes and has now been referred for endocrine evaluation of an incidental finding of a multinodular goiter as noted thereof. She denies any overt neck compression symptoms nor any odyno phagia or dysphagia as noted. She remains clinically euthyroid at this time. Biochemically her thyr oid study showed a T4 of 6.88 with a TSH of 2.77 and free T4 of 0.9. Her latest chemistry showed a B UN of 17, sodium 144, potassium 4.0, chloride 109, CO2 25, glucose 94, and creatinine 0.5. Her thyro id ultrasound showed the presence of a multinodular goiter which was actually showing small nodular d imension with the right lobe measuring 4.3 cm x 1.5 cm and the left lobe measuring 3.4 cm x 1.3 cm wi th small nodules bilaterally as noted. She remains clinically and biochemically euthyroid with the p resence of an underlying multinodular goiter, there is really no indication at this time for any kind of levothyroxine suppressive therapy. Moreover, there are also no indications for any kind of fine needle aspiration biopsy of this more minute bilateral thyroid nodule as seen by thyroid ultrasound. The plan of care and the results of the aforementioned were discussed with the patient and her daugh ter at bedside. We will follow and advise accordingly. Brigette Romeo MD cc: [id number] TT: 09/08/2016 19:06:07 Confirmation # [id number] Dictation # [id number] jessa
--- NOTE | 2016-09-08 20:59 | CP.PCM.PN ---
Subjective - Date & Time of Evaluation Date of Evaluation: 09/08/16 Time of Evaluation: 22:22 - Subjective Subjective: Above noted Objective - Vital Signs/Intake and Output Vital Signs (last 24 hours): Temp Pulse Resp BP Pulse Ox 97.7 F 65 20 134/77 99 09/08/16 16:03 09/08/16 16:03 09/08/16 16:03 09/08/16 16:03 09/08/16 16:03 - Labs Labs: 09/08/16 05:00 PT 12.9 SECONDS (9.6-11.2) H 09/06/16 08:22 INR 1.24 (0.92-1.08) H 09/06/16 08:22 APTT 25.0 SECONDS (23.3-32.5) 09/06/16 08:22 - Respiratory Exam Respiratory Exam: NORMAL BREATHING PATTERN - Cardiovascular Exam Cardiovascular Exam: REGULAR RHYTHM - GI/Abdominal Exam GI & Abdominal Exam: Normal Bowel Sounds Assessment and Plan - Assessment and Plan (Free Text) Assessment: Syncopal episode etiol? Hx CAD HTN Hypercholest Hx Seizure disorder Admit telemetry w/u in process Cardiology Neurology Multinodular thyroid dx Endo
== END 2016-09-08 17:00 | disposition home health service (06) | DRG 312 ==
LOC: H.ER 07:06 → H.ERHOLD 09:44 → H.TEL 11:28 → OBSVTOIN 09-07 09:29
PROVIDERS: ADMIT Family Medicine Geriatric Medicine; ATTEND Family Medicine Geriatric Medicine
DX: R55 Syncope and collapse (principal); J84.10 Pulmonary fibrosis, unspecified; I11.9 Hypertensive heart disease without heart failure; E86.0 Dehydration; H11.32 Conjunctival hemorrhage, left eye; S00.03XA Contusion of scalp, initial encounter; G40.909 Epilepsy, unspecified, not intractable, without status epilepticus; E04.2 Nontoxic multinodular goiter; I25.10 Atherosclerotic heart disease of native coronary artery without angina pectoris; E78.00 Pure hypercholesterolemia, unspecified; M50.321 Other cervical disc degeneration at C4-C5 level; E78.5 Hyperlipidemia, unspecified; W01.198A Fall on same level from slipping, tripping and stumbling with subsequent striking against other object, initial encounter; R29.6 Repeated falls; Z95.5 Presence of coronary angioplasty implant and graft; Z79.82 Long term (current) use of aspirin; Z79.899 Other long term (current) drug therapy; Y92.002 Bathroom of unspecified non-institutional (private) residence as the place of occurrence of the external cause; Z87.891 Personal history of nicotine dependence; Y93.9 Activity, unspecified